=== PATIENT | male | born 1995 | race African-American/Black ===

== ENCOUNTER 2021-10-24 02:47 | Emergency (ER) | payer MEDICAID ==
[~2021-10-24] VITALS: Ht 175.3 cm; Wt 68.0 kg
--- NOTE | 2021-10-24 02:55 | NUR ---
BIB [facility] [employer]. TAKEN TO [facility]F
[2021-10-24 03:04] VITALS: BP 148/75
--- NOTE | 2021-10-24 03:18 | NUR ---
PATIENT BIB [employer]. PATIENT EXAMINED BY DR. ARIZMENDI. PATIENT MEDICALLY CLEARED AND RELEASED IN CUSTODY IN STABLE CONDITION. ORIGINAL PRE-BOOK FORM GIVEN TO OFFICER [facility], #[id number].
== END 2021-10-24 03:18 ==
LOC: MED 02:47
DX: K61.1 Rectal abscess (principal); Z02.89 Encounter for other administrative examinations
CPT/HCPCS: 99283